=== PATIENT | female | born 1970 | race Two or more races ===

== ENCOUNTER → 2017-06-17 | Outpatient (CLI) | payer BC | END | disposition home or self-care (01) | LOC: KCIC MAMMO 09:35 | DX: Z12.31 Encounter for screening mammogram for malignant neoplasm of breast (principal) | CPT/HCPCS: 77067 ==

== ENCOUNTER → 2017-06-26 | Outpatient (CLI) | payer BC | END | disposition home or self-care (01) | LOC: KCIC MAMMO 09:57 | DX: N60.01 Solitary cyst of right breast (principal) | CPT/HCPCS: 76641; 77066 ==